=== PATIENT | male | born 1955 | race Caucasian/White ===

== ENCOUNTER 2021-04-04 13:20 | Observation (INO) | payer SELFPAY ==
[~2021-04-04] VITALS: Ht 180.3 cm; Wt 84.0 kg
[2021-04-04] MEDS ORDERED: ONDANSETRON PF 4 MG/2 ML VIAL. ONE (13:23)
[2021-04-04] MEDS ORDERED: NITROGLYCERIN SUBLINGUAL 0.4 MG BOTTLE OF 25. SL ONE (13:23)
[2021-04-04] MEDS ORDERED: ASPIRIN CHEWABLE 81 MG TABLET. ONE (13:23)
[2021-04-04] MEDS ORDERED: ASPIRIN CHEWABLE 81 MG TABLET. PO ONE (13:30)
[2021-04-04] MEDS: NITROGLYCERIN SUBLINGUAL 0.4 MG BOTTLE OF 25. SL PRN ×2 (13:31→13:43)
--- NOTE | 2021-04-04 13:31 | PHYS DOC ---
Past History Past Medical History: No Pertinent History Past Surgical History: No Surgical History Smoking: Non-smoker Alcohol Use: Occasionally Drug Use: None Adult General Chief Complaint Chief Complaint: DIZZY/LIGHT HEADED HPI HPI Patient is a 65-year-old male presenting via EMS for dizziness. Was bowling with family members. Attempted to change position from a seated to standing position to ambulate and mobile when he started becoming diaphoretic and lightheaded. Patient had to sit down and there was clinical concern over patient's appearance so family called EMS. On arrival, EMS found patient to be hypertensive to 200s/100s with remaining vitals and POC glucose unremarkable. Patient did suffer x1 episode of nonbloody nonbilious emesis in route. On arrival, patient reports ongoing diaphoresis, generalized dizziness and overall feelings of being unwell. Does not have a primary care doctor and subsequently has no known medical issues. States he might have hypertension, states he randomly checks his blood pressure but cannot recall what it usually is, o ccasionally takes his 's blood pressure medication when he feels like it. No prior cardiac history, no history of CVA, no blood thinner use. No falls, fever, recent viral illness, sick contacts, travel, ripping or tearing sensation in chest, chest pain, shortness of breath, cough, abdominal pain, dysuria, changes in motor or sensory or neurologic function. No tobacco use, occasional alcohol use, no prior history of illicit drug use. later came and assisted with history. Admits that patient had unwitnessed syncopal episode at home 72 hours prior that was unprovoked, patient cannot recall event, reports finding patient down at home and minimally responsive to verbal and painful stimuli but reports improvement in clinical status back to baseline mentation and health. She reports he is stubborn and did not want to come in for evaluation at that time Review of Systems Review of Systems Fourteen body systems of review of systems have been reviewed. See HPI for pe rtinent positives and negative responses, other epperson all other systems are negative, non-pertinent or non-contributory Current Medications Current Medications Current Medications Medications (Trade) Dose Ordered Sig/Lyubov Start Time Stop Time Status Last Admin Dose Admin Aspirin (Aspirin Chewable) 81 mg STK-MED ONCE 04/04/21 13:23 04/04/21 13:23 DC Nitroglycerin (Nitrostat) 0.4 mg STK-MED ONCE 04/04/21 13:23 04/04/21 13:23 DC Ondansetron HCl (Zofran) 4 mg STK-MED ONCE 04/04/21 13:23 04/04/21 13:23 DC Physical Exam Physical Exam Constitutional: Well developed, well nourished, ill-appearing and diaphoretic HENT: Normocephalic, diaphoretic, atraumatic, bilateral external ears normal, oropharynx dry with poor dentition, no oral exudates, nose normal. Eyes: PERRLA, EOMI, conjunctiva normal, no discharge. Neck: Normal range of motion, no tenderness, supple, no stridor. Cardiovascular: Heart rate regular, sinus rhythm, no murmurs rubs or gallops Lungs & Thorax: Bilateral breath sounds clear to auscultation Abdomen: Bowel sounds normal, soft, no tenderness, no masses, no pulsatile masses. Nonsurgical abdomen, no peritoneal signs Skin: Warm, dry, no erythema, no rash. Back: No tenderness, no CVA tenderness. Extremities: No tenderness, no cyanosis, no clubbing, ROM intact, no edema. Neurologic: Alert and oriented X 3, cranial nerves II through XII intact, normal motor & sensory function, no focal deficits noted. Psychologic: Anxious affect and mood Current Patient Data Vital Signs Vital Signs Date Time Temp Pulse Resp B/P (MAP) Pulse Ox O2 Delivery O2 Flow Rate FiO2 04/04/21 13:31 63 200/117 04/04/21 13:35 97.8 18 95 Room Air Vital Signs Date Time Temp Pulse Resp B/P (MAP) Pulse Ox O2 Delivery O2 Flow Rate FiO2 04/04/21 14:07 53 162/89 (113) 04/04/21 13:35 97.8 18 95 Room Air Lab Results Laboratory Tests Test 04/04/21 13:26 04/04/21 15:36 White Blood Count 9.2 x10^3/uL Red Blood Count 5.14 x10^6/uL Hemoglobin 14.9 g/dL Hematocrit 44.3 % Mean Corpuscular Volume 86 fL Mean Corpuscular Hemoglobin 29 pg Mean Corpuscular Hemoglobin Concent 34 g/dL Red Cell Distribution Width 14.2 % Platelet Count 227 x10^3/uL Neutrophils (%) (Auto) 55 % Lymphocytes (%) (Auto) 35 % Monocytes (%) (Auto) 7 % Eosinophils (%) (Auto) 3 % Basophils (%) (Auto) 1 % Neutrophils # (Auto) 5.0 x10^3uL Lymphocytes # (Auto) 3.2 x10^3/uL Monocytes # (Auto) 0.7 x10^3/uL Eosinophils # (Auto) 0.3 x10^3/uL Basophils # (Auto) 0.1 x10^3/uL Sodium Level 142 mmol/L Potassium Level 3.3 mmol/L Chloride Level 106 mmol/L Carbon Dioxide Level 24 mmol/L Anion Gap 12 Blood Urea Nitrogen 15 mg/dL Creatinine 1.0 mg/dL Estimated GFR (Cockcroft-Gault) 75.2 BUN/Creatinine Ratio 15 Glucose Level 119 mg/dL Calcium Level 8.5 mg/dL Magnesium Level 2.0 mg/dL Total Bilirubin 0.5 mg/dL Aspartate Amino Transf (AST/SGOT) 28 U/L Alanine Aminotransferase (ALT/SGPT) 38 U/L Alkaline Phosphatase 100 U/L Troponin I Quantitative < 0.017 ng/mL [id number] Natriuretic Peptide 403 pg/mL Total Protein 7.3 g/dL Albumin 3.7 g/dL Albumin/Globulin Ratio 1.0 Ethyl Alcohol Level < 10 mg/dL Urine Opiates Screen Neg Urine Methadone Screen Neg Urine Barbiturates Neg Urine Phencyclidine Screen Neg Urine Amphetamine/Methamphetamine Neg Urine Benzodiazepines Screen Neg Urine Cocaine Screen Neg Urine Cannabinoids Screen Neg Urine Ethyl Alcohol Neg Current Medications Medications (Trade) Dose Ordered Sig/Lyubov Route PRN Reason Start Time Stop Time Status Last Admin Dose Admin Ondansetron HCl (Zofran) 4 mg STK-MED ONCE .ROUTE 04/04/21 13:23 04/04/21 13:23 DC Aspirin (Aspirin Chewable) 81 mg STK-MED ONCE .ROUTE 04/04/21 13:23 04/04/21 13:23 DC Nitroglycerin (Nitrostat) 0.4 mg STK-MED ONCE SL 04/04/21 13:23 04/04/21 13:23 DC Aspirin (Aspirin Chewable) 324 mg 1X ONCE PO 04/04/21 13:30 04/04/21 13:34 DC 04/04/21 13:31 Nitroglycerin (Nitrostat) 0.4 mg PRN Q5MIN PRN SL CP RATING > 1/10 04/04/21 13:30 04/05/21 13:29 04/04/21 13:43 Ondansetron HCl (Zofran) 4 mg 1X ONCE IVP 04/04/21 13:45 04/04/21 13:46 DC 04/04/21 13:45 Iohexol (Omnipaque 350 Mg/ml) 100 ml 1X ONCE IV 04/04/21 14:15 04/04/21 14:16 DC Potassium Chloride (Klor-Con) 40 meq 1X ONCE PO 04/04/21 15:30 04/04/21 15:51 DC EKG EKG EKG ordered and interpreted by myself at 1329 hrs. as sinus rhythm at 69 bpm, unremarkable intervals, left axis deviation, no acute ischemic findings, no STEMI Repeat EKG ordered and interpreted by myself at 1554 hrs. as sinus bradycardia at 49 bpm, unremarkable intervals, left axis deviation, no STEMI, no significant change from prior EKG Radiology/Procedures Radiology/Procedures XR CHEST 1V 04/04/2021 1:32 PM INDICATION: Chest pain COMPARISON: None available TECHNIQUE: Portable frontal view of the chest is provided. FINDINGS: The cardiomediastinal silhouette is within normal limits. Lungs are clear. There are no significant pleural effusions. There is no pulmonary vascular congestion. No pneumothorax. No suspicious osseous abnormality. IMPRESSION: There is no acute cardiopulmonary process. Electronically signed by: Urszula Donato MD (04/04/2021 1:41 PM) [id number] ///////////////////////////////////// CT CHEST WITH CONTRAST, PULMONARY ANGIOGRAM History: Reason: hypoxia / Spl. Instructions: / History: Comparison: None. Technique: Helical CT of the chest was performed after the administration of 80 cc of Isovue 370 intravenous contrast according to PE protocol. Axial and coronal reconstructions were obtained. 3-D MIP images were constructed to better evaluate the pulmonary arteries. Findings: Pulmonary arteries are adequately opacified. There is no evidence of pulmonary embolism. There are subcentimeter mediastinal lymph nodes. No adenopathy is seen in the chest. There is ectasia of the ascending thoracic aorta, diameter 3.6 cm. There is coronary artery disease. Cardiac size normal, no pericardial effusion. There is no pleural abnormality. The central airways are patent. There is moderate bilateral dependent atelectasis. There is a small cyst in segment 2 of the liver. There is contrast in the upper renal collecting system from earlier CTA head and neck. Small left renal cysts do not require follow-up. There is diastasis of the rectus abdominis muscles. Thoracic spine alignment is maintained. No acute bone abnormality. There are probably reactive endplate changes of L1/L2. IMPRESSION: 1. There is no pulmonary embolus. 2. Moderate bilateral dependent atelectasis. Electronically signed by: Tien Hendrickson MD (04/04/2021 3:05 PM) [facility] ///////////////////////// EXAM: CT HEAD/BRAIN WO, CTA HEAD AND NECK W/WO CONTRAST DATE: 04/04/2021 2:05 PM INDICATION: dizziness, syncope TECHNIQUE: 5 mm axial tomographic images were obtained through the head before contrast. CTA angiogram of the head and neck was obtained after IV bolus administration of 150 cc of Omnipaque 350. The images were sent to workstation and multiplanar reconstructions were obtained. Multiplanar reconstruction images to include MIP and 3-D reconstruction images are submitted. One or more of the following dose reduction techniques were utilized: Automated exposure control (AEC), Adjustment of mA and/or kV according to patient size, Use of iterative reconstruction technique such as ASiR, CT scan done according to ALARA and image gently/image wisely COMPARISON: None. FINDINGS: Noncontrast CT: Mild nonspecific periventricular hypoattenuation is most consistent with chronic small vessel ischemic disease. No intra- or extra-axial mass or fluid collect ion. No hyperdense intracranial hemorrhage. The ventricles are normal in size and configuration without midline shift. There is normal pascual-white matter differentiation. The subarachnoid cisterns are patent. Opacification of the frontal sinuses, anterior ethmoid sinuses, left posterior ethmoid sinus, and left maxillary sinus. Mucoperiosteal reaction in the frontal sinuses and left maxillary sinus consistent with chronic sinusitis. The mastoid air cells are clear. The visualized portions of the orbits are normal. No aggressive osseous lesion or fracture. CTA Head: Atherosclerosis of the cavernous and paraclinoid ICAs with 25-50 percent stenosis on the left and no stenosis on the right. 75 percent stenosis of the left SANGITA A2 segment. MCAs are patent. 50-75 percent stenosis of the intracranial right vertebral artery just before the vertebrobasilar junction. Intracranial left vertebral artery and basilar arteries are patent. CTA Neck: Right carotid: The right common carotid artery is patent and normal caliber. Mild atherosclerosis of the carotid bifurcation. No stenosis of the right internal carotid artery per NASCET criteria. The right external carotid artery is patent. Left carotid: The left common carotid artery is patent and normal caliber. Mild atherosclerosis of the carotid bifurcation. No stenosis of the left internal carotid artery per NASCET criteria. The left external carotid artery is patent. Right vertebral: The right vertebral artery is patent and normal caliber. Left vertebral: The left vertebral artery is patent and normal caliber. The visualized portions of the aortic arch are normal. The origins of the brachiocephalic and subclavian arteries are normal. No cervical lymphadenopathy. The thyroid gland is normal. The parotid and submandibular glands are normal. Poor dentition with several dental caries. Mild multilevel degenerative disc height loss. Multilevel disc protrusions and marginal osteophytes results in multilevel spinal canal stenosis. Multilevel uncovertebral and facet arthrosis with multilevel neural foraminal narrowing. The visualized portions of the lungs are clear. IMPRESSION: 1. No acute intracranial process by noncontrast head CT. 2. No intracranial large vessel occlusion. 3. Scattered intracranial atherosclerotic disease, worst and severe involving the left SANGITA A2 segment. 4. No stenosis of the cervical carotid or vertebral arteries. 5. Poor dentition with several dental caries. Heart Score C/O Chest Pain: No HEART Score for Chest Pain: HEART Score for Chest Pain Response (Comments) Value History Moderately Suspicious 1 ECG Nonspecific Repolarizatio 1 Age >45 - < 65 1 Risk Factors 1 or 2 Risk Factors 1 Troponin < Normal Limit 0 Total 4 Risk Factors: Risk Factors: DM, Current or recent (<one month) smoker, HTN, HLP, family history of CAD, obesity. Risk Scores: Risk Factors: DM, Current or recent (<one month) smoker, HTN, HLP, family history of CAD, obesity. Course & Med Decision Making Course & Med Decision Making Hypertensive and 88% on room air otherwise hemodynamically stable. Airway patent, increased work of breathing, vitals and subsequent IV access obtained HPI concerning for syncopal episode 72 hours prior with symptoms that started today after positional change from seated to standing position. Physical exam nonconcerning for emergent or surgical issues. Comprehensive ER work-up obtained and nonconcerning Aspirin, x2 sublingual nitro and supplemental oxygen via nasal cannula administered with improvement in symptoms and blood pressure Patient symptoms improved throughout ER visit; however, patient remained in sinus rhythm but rate wandered from low 40s to 80s. He has no primary care physician, takes no medications at home, he is high risk for adverse cardiac event versus other if discharged I contacted cardiology service staff weapons officer and reviewed case and they agreed need for admission. I contacted hospitalist service and discussed case in conversation with cardiology, it was recommended that patient be admitted for telemetry and observation status at [facility] I updated patient on proposed plan of care that included hospital admission, he was initially hesitant due to cost as he is self-pay but ultimately willing. I discussed conversation with cardiology about potentially discharging home with close outpatient follow-up but joint decision between myself, patient and resulted in request for hospital admission given recent events such as episode today and syncopal episode that is unexplained from 72 hours ago and patient with no prior work-up. All questions and concerns addressed prior to hospital admission Critical Care Time This patient required critical care. Due to the fact that the patient required a significant amount of one on one physician - patient contact time, ordering and review of studies, arranging urgent treatment with development of a management plan, evaluation of patients response to treatment with frequent reassessments, and discussions with other providers this patient required 50 minutes of critical care time. Critical care time was indicated due to the inherent instability and/or potential for instability in this patient. The critical care time that is allocated to this patient is above and beyond any time spent on any other billable procedures performed on this patient. Dragon Disclaimer Dragon Disclaimer This electronic medical record was generated, in whole or in part, using a voice recognition dictation system. Departure Departure: Impression: Primary Impression: Syncope Additional Impressions: Elevated blood pressure reading without diagnosis of hypertension Hypoxia Disposition: ADMITTED INPATIENT Admitting Physician: Derrek Poole Condition: STABLE Problem Qualifiers ANGIE DICKEY DO Apr 04, 2021 13:31
--- NOTE | 2021-04-04 13:43 | RAD ---
XR CHEST 1V 04/04/2021 1:32 PM INDICATION: Chest pain COMPARISON: None available TECHNIQUE: Portable frontal view of the chest is provided. FINDINGS: The cardiomediastinal silhouette is within normal limits. Lungs are clear. There are no significant pleural effusions. There is no pulmonary vascular congestion. No pneumothora x. No suspicious osseous abnormality. IMPRESSION: There is no acute cardiopulmonary process. Electronically signed by: Urszula Donato MD (04/04/2021 1:41 PM) [id number]
[2021-04-04 13:44] LABS: BASO # 0.1 x10^3/uL (0.0-0.2); BASO % 1 % (0-3); EOS # 0.3 x10^3/uL (0.0-0.7); EOS % 3 % (0-3); HEMATOCRIT 44.3 % (39.0-53.0); HEMOGLOBIN 14.9 g/dL (13.0-17.5); LYMPH # 3.2 x10^3/uL (1.0-4.8); LYMPH % 35 % (24-48); MEAN CORPUSCULAR HEMOGLOBIN 29 pg (25-35); MEAN CORPUSCULAR HGB CONC 34 g/dL (31-37); MEAN CORPUSCULAR VOLUME 86 fL (79-100); MONO # 0.7 x10^3/uL (0.0-1.1); MONO % 7 % (0-9); NEUT % 55 % (31-73); PLATELET COUNT 227 x10^3/uL (140-400); RED BLOOD COUNT 5.14 x10^6/uL (4.30-5.70); RED CELL DISTRIBUTION WIDTH 14.2 % (11.5-14.5); WHITE BLOOD COUNT 9.2 x10^3/uL (4.0-11.0)
[2021-04-04] MEDS ORDERED: ONDANSETRON PF 4 MG/2 ML VIAL. IVP ONE (13:45)
--- NOTE | 2021-04-04 14:12 | EKG ---
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
[2021-04-04] MEDS ORDERED: IOHEXOL 350 MG/ML 100 ML VIAL. IV ONE (14:15)
[2021-04-04 14:23] LABS: ALBUMIN 3.7 g/dL (3.4-5.0); CALCIUM 8.5 mg/dL (8.5-10.1); GFR 75.2; POTASSIUM 3.3 mmol/L (3.5-5.1); TOTAL BILIRUBIN 0.5 mg/dL (0.2-1.0); TOTAL PROTEIN 7.3 g/dL (6.4-8.2)
--- NOTE | 2021-04-04 15:08 | RAD ---
PQRS Compliance Statement: One or more of the following individualized dose reduction techniques were utilized for this examinat ion: 1. Automated exposure control 2. Adjustment of the mA and/or kV according to patient size 3. Use of iterative reconstruction technique CT CHEST WITH CONTRAST, PULMONARY ANGIOGRAM History: Reason: hypoxia / Spl. Instructions: / History: Comparison: None. Technique: Helical CT of the chest was performed after the administration of 80 cc of Isovue 370 int ravenous contrast according to PE protocol. Axial and coronal reconstructions were obtained. 3-D CT P images were constructed to better evaluate the pulmonary arteries. Findings: Pulmonary arteries are adequately opacified. There is no evidence of pulmonary embolism. There are subcentimeter mediastinal lymph nodes. No adenopathy is seen in the chest. There is ectasia of the ascending thoracic aorta, diameter 3.6 cm. There is coronary artery disease. Cardiac size nor mal, no pericardial effusion. There is no pleural abnormality. The central airways are patent. There is moderate bilateral dependen t atelectasis. There is a small cyst in segment 2 of the liver. There is contrast in the upper renal collecting syst em from earlier CTA head and neck. Small left renal cysts do not require follow-up. There is diastasi s of the rectus abdominis muscles. Thoracic spine alignment is maintained. No acute bone abnormality. There are probably reactive endpla te changes of L1/L2. IMPRESSION: 1. There is no pulmonary embolus. 2. Moderate bilateral dependent atelectasis. Electronically signed by: Tien Hendrickson MD (04/04/2021 3:05 PM) [facility]
--- NOTE | 2021-04-04 15:12 | RAD ---
EXAM: CT HEAD/BRAIN WO, CTA HEAD AND NECK W/WO CONTRAST DATE: 04/04/2021 2:05 PM INDICATION: dizziness, syncope TECHNIQUE: 5 mm axial tomographic images were obtained through the head before contrast. CTA angiogra m of the head and neck was obtained after IV bolus administration of 150 cc of Omnipaque 350. The teresa ges were sent to workstation and multiplanar reconstructions were obtained. Multiplanar reconstructi on images to include MIP and 3-D reconstruction images are submitted. One or more of the following dose reduction techniques were utilized: Automated exposure control (AEC ), Adjustment of mA and/or kV according to patient size, Use of iterative reconstruction technique park ch as ASiR, CT scan done according to ALARA and image gently/image wisely COMPARISON: None. FINDINGS: Noncontrast CT: Mild nonspecific periventricular hypoattenuation is most consistent with chronic small vessel ischemi c disease. No intra- or extra-axial mass or fluid collection. No hyperdense intracranial hemorrhage. The ventricles are normal in size and configuration without midline shift. There is normal pascual-white matter differentiation. The subarachnoid cisterns are patent. Opacification of the frontal sinuses, anterior ethmoid sinuses, left posterior ethmoid sinus, and lef t maxillary sinus. Mucoperiosteal reaction in the frontal sinuses and left maxillary sinus consistent with chronic sinusitis. The mastoid air cells are clear. The visualized portions of the orbits are n ormal. No aggressive osseous lesion or fracture. CTA Head: Atherosclerosis of the cavernous and paraclinoid ICAs with 25-50 percent stenosis on the left and no stenosis on the right. 75 percent stenosis of the left SANGITA A2 segment. MCAs are patent. 50-75 percent stenosis of the intracranial right vertebral artery just before the vertebrobasilar junction. Intrac ranial left vertebral artery and basilar arteries are patent. CTA Neck: Right carotid: The right common carotid artery is patent and normal caliber. Mild atherosclerosis of the carotid bifurcation. No stenosis of the right internal carotid artery per NASCET criteria. The ri ght external carotid artery is patent. Left carotid: The left common carotid artery is patent and normal caliber. Mild atherosclerosis of th e carotid bifurcation. No stenosis of the left internal carotid artery per NASCET criteria. The left external carotid artery is patent. Right vertebral: The right vertebral artery is patent and normal caliber. Left vertebral: The left vertebral artery is patent and normal caliber. The visualized portions of the aortic arch are normal. The origins of the brachiocephalic and subclav celine arteries are normal. No cervical lymphadenopathy. The thyroid gland is normal. The parotid and submandibular glands are no rmal. Poor dentition with several dental caries. Mild multilevel degenerative disc height loss. Multilevel disc protrusions and marginal osteophytes r esults in multilevel spinal canal stenosis. Multilevel uncovertebral and facet arthrosis with multile raheel neural foraminal narrowing. The visualized portions of the lungs are clear. IMPRESSION: 1. No acute intracranial process by noncontrast head CT. 2. No intracranial large vessel occlusion. 3. Scattered intracranial atherosclerotic disease, worst and severe involving the left SANGITA A2 segment . 4. No stenosis of the cervical carotid or vertebral arteries. 5. Poor dentition with several dental caries. PQRS Compliance Statement - Stenosis calculations for CT, MR and conventional angiography are based u vesta measurement of the distal ICA diameter in accordance with the NASCET methodology. Electronically signed by: Ketan Ray MD (04/04/2021 3:10 PM) [id number]
[2021-04-04] MEDS ORDERED: POTASSIUM CHLORIDE 20 MEQ TABLET.ER. PO ONE (15:30)
--- NOTE | 2021-04-04 15:54 | EKG ---
[address] [address] Test Date: 2021-04-04 Test Time: 15:47:34 Pat Name: KAREN MCCANN Department: Room: Gender: M Desktop Manager: TRISTAN : 1955 Requested By: ANGIE DICKEY Order Number: [id number] Reading MD: Measurements Intervals [place] Rate: 49 P: 46 [place]: 166 QRS: -29 QRSD: 100 T: -8 QT: 462 QTc: 420 Interpretive Statements SINUS BRADYCARDIA ATRIAL PREMATURE COMPLEX(ES) LEFTWARD AXIS T ABNORMALITY IN ANTEROLATERAL LEADS INFERIOR LEADS ABNORMAL ECG RI6.02 No previous ECG available for comparison
[2021-04-04 16:08] LABS: BARBITURATES NEG (NEG); BENZODIAZEPINES NEG (NEG); CANNABINOIDS NEG (NEG); COCAINE NEG (NEG); METHADONE NEG (NEG); OPIATES NEG (NEG); PHENCYCLIDINE NEG (NEG)
[2021-04-04 16:21] LABS: AMPHETAMINE/METHAMPHETAMINE NEG (NEG)
[2021-04-04] MEDS ORDERED: NITROGLYCERIN SUBLINGUAL 0.4 MG BOTTLE OF 25. SL PRN (17:00)
[2021-04-04] MEDS ORDERED: ACETAMINOPHEN 325 MG TABLET PO PRN (17:00)
[2021-04-04 17:37] VITALS: BP 209/110
--- NOTE | 2021-04-04 17:51 | NUR ---
The patient, KAREN MCCANN, 65 y/o, M admitted by DIAMANTE ALMONTE MD, was given written information regarding hospital policies, unit procedures and contact persons. Valuables were checked and VS taken, please see chart.
[2021-04-04] MEDS ORDERED: NICOTINE 21MG PATCH. TD PRN (18:15)
[2021-04-04] MEDS ORDERED: ATENOLOL 50 MG TABLET PO ONE (18:30)
[2021-04-04] MEDS ORDERED: LISINOPRIL 20 MG TABLET PO ONE (18:30)
[2021-04-04 20:00] VITALS: BP_SYST 160; BP_SYST 170; BP_DIAS 101; BP_DIAS 96
[2021-04-04 20:04] VITALS: BP 171/97
[2021-04-04 20:06] VITALS: BP 160/96
[2021-04-04] MEDS: LISINOPRIL 20 MG TABLET PO SCH (21:31)
[2021-04-04 23:00] VITALS: BP 187/92
[2021-04-05 06:14] VITALS: BP 156/80
--- NOTE | 2021-04-05 06:28 | NUR ---
Pt slept soundly through the night. He denies pain, dizziness or nausea. While sleeping pt heart rate has been 44-59 bpm. Will continue to monitor.
[2021-04-05] MEDS ORDERED: ASPIRIN CHEWABLE 81 MG TABLET. PO SCH (08:00)
[2021-04-05 08:19] VITALS: BP 156/80
[2021-04-05] MEDS: LISINOPRIL 20 MG TABLET PO SCH (08:19)
[2021-04-05] MEDS ORDERED: POTASSIUM CHLORIDE 20 MEQ TABLET.ER. PO ONE (08:30)
[2021-04-05] MEDS ORDERED: ATENOLOL 50 MG TABLET PO SCH (09:00)
[2021-04-05] MEDS ORDERED: LISINOPRIL 20 MG TABLET PO SCH (09:00)
--- NOTE | 2021-04-05 09:14 | HP ---
ADMIT DATE: 04/05/2021 CHIEF COMPLAINT: Dizziness, lightheaded, and elevated blood pressure. HISTORY OF PRESENT ILLNESS: The patient is a 65-year-old gentleman, who was at a [facility] with family members. It was his daughter's birthday. He became diaphoretic and lightheaded, dizzy. EMS was called. He did not pass out. He had one episode of nonbloody, nonbilious emesis en route. Symptoms appear to be vertiginous in nature. He does have some sinus issues. He has no local primary doctor and he is not on any medication. His blood pressure was elevated, blood pressure 200 systolic and he was treated accordingly. He also had an extensive workup. Blood work showed no acute kidney or liver disease. Hemoglobin and white count were normal. He had extensive imaging studies including CT of the head, CT angiogram and the CT of the chest, which showed no significant stroke, nonspecific arterial sclerosis. No significant hemodynamic lesions. Because of his symptoms and risk factors of cardiac disease, he was admitted for overnight observation. Blood pressure controlled and also serial cardiac enzymes. His first troponin was negative. PAST MEDICAL HISTORY: His past medical history is interesting. He has been fairly healthy, does not take any medicine. PAST SURGICAL HISTORY: No surgical history. ALLERGIES: No known drug allergies. 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 He is . Children are grown. FAMILY HISTORY: His father at age 69 of lung cancer, heavy smoker. Mother at age 69. Unspecified cancer. He has no surgical issues. SOCIAL HISTORY: He is a nonsmoker, but he drinks alcohol on the weekends, exact amount is sketchy at this time, I suspect is more than he admits to. REVIEW OF SYSTEMS: Significant for the dizziness symptoms and sinus congestion. He is exposed to secondhand smoke. No COVID exposure, fevers, chills and one episode of vomiting. All other systems reviewed and turned to be negative. PHYSICAL EXAMINATION: GENERAL: When I saw him this is a pleasant middle-aged gentleman. VITAL SIGNS: Initial vital signs in the ED showed a blood pressure was elevated. By the time we treated him and I saw him, he was down to 156/80, pulse is 66 and regular. He was afebrile, oxygen saturation 97% on room air. HEENT: The head is without trauma. Pupils are reactive. Sclerae is nonicteric. Oropharynx is clear. NECK: Supple, no bruits identified. LUNGS: Otherwise clear. CARDIOVASCULAR: Regular heart tones. No gallops. ABDOMEN: Soft. EXTREMITIES: Without edema. NEUROLOGIC: Finding focally intact. Speech is fluent. Cold Work Operator intact and symmetrical. SKIN: Otherwise, warm and dry. LABORATORY AND IMAGING STUDIES: As noted normal. Normal CT of the chest and head without any evidence of stroke. No evidence of pulmonary embolus. He had a normal hemoglobin 14.9 g/dL, white count 9200. Potassium slightly low at 3.3 mEq, asymptomatic. This has been treated. ASSESSMENT: 1. A 65-year-old gentleman with vertigo symptoms, which has since resolved. 2. 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 3. Rule out coronary ischemia. PLAN: 1. Observation status. 2. I have started him on an AUNDREA inhibitor, baby aspirin and a beta bert. 3. Serial cardiac enzymes. RACHANA DR: Rachid TID: [id number]
--- NOTE | 2021-04-05 09:33 | NUR ---
Patient discharged to home. Given written discharge instructions and voiced understanding. Instructions gone over with patient and patient's girlfriend. Patient and girlfriend educated on use of new prescriptions for lisinopril, aspirin, and atenolol. Patient educated on need for BP machine as well as how to read radial pulse. Given instructions on what BP level not to take BP meds and which HR not to take atenolol. Patient and girlfriend voiced understanding. Patient ambulated off unit, no concerns noted.
--- NOTE | 2021-04-05 10:00 | DS ---
DATE OF DISCHARGE: 04/05/2021 ATTENDING PHYSICIAN: Dr. Poole. FINAL DISCHARGE DIAGNOSES: 1. Labile hypertension, improved. 2. Dizziness secondary to vertigo. 3. Chronic alcohol use. 4. Episode of nausea related to vertigo. HISTORY AND PHYSICAL: The patient is a 65-year-old gentleman admitted through the ED with symptoms of vertigo as well as a high blood pressure. These are unassociated. His vertiginous symptoms have resolved. He was admitted overnight for observation and treatment of blood pressure and serial cardiac enzymes. Extensive workup in the ED, initial cardiac enzymes were negative along with a CT chest and CT of the head, which showed no evidence of a stroke or obstruction. PHYSICAL EXAMINATION: Please see the dictated note. PERTINENT LABORATORY AND X-RAY STUDIES: Normal. CT head, CT angiogram without any obstructive lesions. Three sets of cardiac enzymes are negative for coronary ischemia, a slightly low potassium of 3.2 mEq, was treated accordingly with oral potassium. We started him on lisinopril and atenolol. His heart rate had been slightly low due to some vasovagal issues, but when I saw him, his heart rate was up into the 90s. Therefore, in the next hospital day, I reassured him that his workup was fairly unremarkable. He needs to curtail his alcohol use and to take his blood pressure meds. I therefore wrote a script for lisinopril 40 mg p.o. daily 30 pills with 3 refills lasting for 4 months until he finds a primary care physician. In addition, I recommended atenolol 100 mg p.o. daily and finally one baby aspirin 81 mg daily. The patient was then discharged from our hospital in stable condition with explicit and followup care. I gave him the names and telephone number of the primary care group at [facility]. He was discharged then again in stable condition with explicit instructions and followup care. RACHANA DR: Rachid TID: [id number]
== END 2021-04-05 09:37 | disposition home or self-care (01) ==
LOC: ER 13:20 → 1 SOUTH 16:55
PROVIDERS: ADMIT Hospitalist; ATTEND Hospitalist
DX: I10 Essential (primary) hypertension (principal); R42 Dizziness and giddiness; F10.129 Alcohol abuse with intoxication, unspecified; J98.11 Atelectasis; I67.2 Cerebral atherosclerosis; E11.9 Type 2 diabetes mellitus without complications; E78.5 Hyperlipidemia, unspecified; R55 Syncope and collapse; R09.02 Hypoxemia; R03.0 Elevated blood-pressure reading, without diagnosis of hypertension; K02.9 Dental caries, unspecified; Z87.891 Personal history of nicotine dependence; Z79.899 Other long term (current) drug therapy; Z98.890 Other specified postprocedural states; Z79.82 Long term (current) use of aspirin; Y92.39 Other specified sports and athletic area as the place of occurrence of the external cause; Y93.54 Activity, bowling
CPT/HCPCS: 36415; 70450; 70496; 70498; 71045; 71275; 80053; 80307; 83735; 83880; 84484; 85025; 93005; 96374; 99291; G0378; G0480; J2405; G0379